=== PATIENT | female | born 1945 | race Caucasian/White ===

== ENCOUNTER 2025-07-04 18:52 | Emergency (ER) | payer MEDICARE ==
[~2025-07-04] VITALS: Wt 75.7 kg
[2025-07-04] MEDS ORDERED: Ondansetron Hydrochloride 4 MG TAB SL ONE (19:15)
[2025-07-04] MEDS ORDERED: Acetaminophen/Hydrocodone ES 7.5/325 tablet PO ONE ×2 (19:15)
[2025-07-04] MEDS ORDERED: HYDROmorphONE Hydrochloride 0.5 MG/0.5 ML SYRINGE IM ONE (20:05)
== END 2025-07-04 19:37 | disposition home or self-care (01) ==
LOC: ED 18:52
DX: G89.29 Other chronic pain (principal); M79.602 Pain in left arm